=== PATIENT | male | born 1975 | race Caucasian/White ===

== ENCOUNTER 2022-12-23 11:17 | Day surgery (SDC) | payer OTHER ==
[~2022-12-23] VITALS: Ht 172.7 cm; Wt 67.0 kg
[~2022-12-23 11:17] MED LIST: NS 1,000 ML IV ONE; PANT40TA29 PO
[2022-12-23] MEDS ORDERED: propofoL 200 MG/20 ML VIAL As Ordered ONE (12:43)
[2022-12-23] MEDS ORDERED: LIDOCAINE 2% 100MG/5ML SDV (FOR ANES.) As Ordered ONE (12:43)
[2022-12-23] MEDS ORDERED: fentaNYL 100 MCG/2 ML INJECTION As Ordered ONE (12:43)
[2022-12-23 13:10] VITALS: BP 123/73
== END 2022-12-23 13:16 | disposition home or self-care (01) ==
LOC: M OPP 11:17
PROVIDERS: ATTEND Internal Medicine Gastroenterology
DX: K22.89 Other specified disease of esophagus (principal); K29.60 Other gastritis without bleeding; F17.200 Nicotine dependence, unspecified, uncomplicated; Z79.1 Long term (current) use of non-steroidal anti-inflammatories (NSAID); Z79.899 Other long term (current) drug therapy
CPT/HCPCS: 43239; 88305; J3010

== ENCOUNTER 2023-03-13 07:51 | Day surgery (SDC) | payer OTHER ==
[~2023-03-13] VITALS: Ht 172.7 cm; Wt 67.1 kg
[~2023-03-13 07:51] MED LIST changes: +IBUP-1022 PO; +propofoL 200 MG/20 ML VIAL As Ordered ONE
[2023-03-13] MEDS ORDERED: LIDOCAINE 2% 100MG/5ML SDV (FOR ANES.) As Ordered ONE (07:55)
[2023-03-13 09:51] VITALS: BP 98/62; O2SAT 100
== END 2023-03-13 09:52 | disposition home or self-care (01) ==
LOC: M OPP 07:51
PROVIDERS: ATTEND Internal Medicine Gastroenterology
DX: K64.8 Other hemorrhoids (principal); R19.4 Change in bowel habit; R63.4 Abnormal weight loss; F17.200 Nicotine dependence, unspecified, uncomplicated; Z79.1 Long term (current) use of non-steroidal anti-inflammatories (NSAID); Z79.899 Other long term (current) drug therapy

== ENCOUNTER 2024-10-15 08:11 | Day surgery (SDC) | payer OTHER ==
[~2024-10-15] VITALS: Ht 172.7 cm; Wt 71.6 kg
[~2024-10-15 08:11] MED LIST changes: +ALEV220T22 PO; +GABA-284 PO; -NS 1,000 ML IV ONE; -propofoL 200 MG/20 ML VIAL As Ordered ONE
[2024-10-15 09:38] VITALS: TEMP 96.4
[2024-10-15 09:53] VITALS: BP 100/62; O2SAT 97
== END 2024-10-15 10:04 | disposition home or self-care (01) ==
LOC: M OPP 08:11
PROVIDERS: ATTEND Internal Medicine Gastroenterology
DX: Z12.11 Encounter for screening for malignant neoplasm of colon (principal); D12.0 Benign neoplasm of cecum; K64.8 Other hemorrhoids; K57.30 Diverticulosis of large intestine without perforation or abscess without bleeding; Z79.899 Other long term (current) drug therapy; F17.210 Nicotine dependence, cigarettes, uncomplicated